=== PATIENT | female | born 1940 | race Caucasian/White ===

== ENCOUNTER → 2017-04-13 | Outpatient (CLI) | payer OTHER ==
[~2017-04-13] MED LIST: ASCO10004 PO; ATEN25TA PO; BEVA25VI INJ; CALCIUM PO; CAPE500T24 PO; MULT-516 PO; OMNIPAQUE 350 MG/ML, 100ML BOTTLE ONE; PRED-402 PO; VITAMIN B12 PO; VITAMIN D3 PO; VITAMIN K2 PO; Vitamin B PO
== END | disposition home or self-care (01) ==
LOC: CFH 10:01 → MERGE 10:01
PROVIDERS: ATTEND Radiology Radiation Oncology
DX: C18.9 Malignant neoplasm of colon, unspecified (principal); C78.01 Secondary malignant neoplasm of right lung; M48.56XA Collapsed vertebra, not elsewhere classified, lumbar region, initial encounter for fracture; M47.895 Other spondylosis, thoracolumbar region; M16.0 Bilateral primary osteoarthritis of hip; M43.16 Spondylolisthesis, lumbar region; N95.9 Unspecified menopausal and perimenopausal disorder; I10 Essential (primary) hypertension
CPT/HCPCS: 71260; 74177; Q9967

== ENCOUNTER 2017-05-09 06:04 | Day surgery (SDC) | payer OTHER ==
[~2017-05-09] VITALS: Ht 170.2 cm; Wt 57.4 kg
[~2017-05-09 06:04] MED LIST changes: +IBUP-1484 PO; -OMNIPAQUE 350 MG/ML, 100ML BOTTLE ONE
[2017-05-09] MEDS ORDERED: LACTATED RINGERS 1,000 ML IV SCH (06:41)
[2017-05-09] MEDS ORDERED: FENTANYL PF 250 MCG/5ML ONE (07:04)
[2017-05-09] MEDS ORDERED: HEPARIN 5,000 UNITS/ML, 1ML ONE (07:04)
[2017-05-09] MEDS ORDERED: MIDAZOLAM 1 MG/ML, 2ML ONE (07:04)
[2017-05-09] MEDS ORDERED: BUPIVACAINE/PF 0.5% ONE (07:04)
[2017-05-09] MEDS ORDERED: CEFAZOLIN 1,000 MG ONE (07:05)
[2017-05-09] MEDS ORDERED: DEXAMETHASONE 4 MG/ML, 1ML ONE (07:05)
[2017-05-09] MEDS ORDERED: EPINEPHRINE 1 MG/ML, 1ML ONE (07:05)
[2017-05-09] MEDS ORDERED: HEPARIN 1,000 UNITS/ML, 10ML ONE (07:05)
[2017-05-09] MEDS ORDERED: PROPOFOL 10 MG/ML, 20ML ONE ×2 (07:05→08:25)
[2017-05-09] MEDS ORDERED: SUCCINYLCHOLINE 20 MG/ML, 10ML ONE (07:05)
[2017-05-09] MEDS ORDERED: ONDANSETRON 2MG/ML, 2ML ONE (07:05)
[2017-05-09] MEDS ORDERED: SODIUM CHLORIDE 0.9% 100 ML ONE (07:08)
[2017-05-09] MEDS ORDERED: BUPIVACAINE/PF 0.5% INFIL ONE (07:59)
[2017-05-09] MEDS ORDERED: HEPARIN 1,000 UNITS/ML, 10ML IV ONE (08:00)
[2017-05-09] MEDS ORDERED: EPINEPHRINE 1 MG/ML, 1ML INFIL ONE (08:00)
[2017-05-09] MEDS ORDERED: HEPARIN 5,000 UNITS/ML, 1ML SQ ONE (08:18)
[2017-05-09] MEDS ORDERED: ACETAMINOPHEN 325 MG TABLET PO PRN (08:30)
[2017-05-09] MEDS ORDERED: ONDANSETRON 2MG/ML, 2ML IVPush PRN (08:30)
[2017-05-09] MEDS ORDERED: HYDROmorphone 1 MG/ML, 1ML IV PRN (08:30)
[2017-05-09] MEDS ORDERED: MIDAZOLAM 1 MG/ML, 2ML IV PRN (08:30)
[2017-05-09] MEDS ORDERED: ALBUTEROL/IPRATROPIUM 2.5MG/0.5MG, 3 ML NPPB PRN (08:30)
[2017-05-09] MEDS ORDERED: FENTANYL PF 100 MCG/2ML ONE ×2 (08:56→09:24)
[2017-05-09] MEDS ORDERED: OXYcodone 5 MG/5 ML ORAL.SOL UDC ONE (08:56)
[2017-05-09] MEDS ORDERED: ACETAMINOPHEN 325 MG TABLET ONE (08:56)
[2017-05-09] MEDS: OXYcodone 5 MG/5 ML ORAL.SOL UDC PO PRN ×2 (09:03→09:21)
[2017-05-09] MEDS: FENTANYL PF 100 MCG/2ML IV PRN ×4 (09:04→09:49)
== END 2017-05-09 14:45 ==
LOC: OUT 06:04
PROVIDERS: ATTEND Surgery
DX: Z45.2 Encounter for adjustment and management of vascular access device (principal); C19 Malignant neoplasm of rectosigmoid junction; Z98.890 Other specified postprocedural states; Z87.39 Personal history of other diseases of the musculoskeletal system and connective tissue; I10 Essential (primary) hypertension; Z85.118 Personal history of other malignant neoplasm of bronchus and lung
CPT/HCPCS: 36561; 71010; 77001; C1788; J0171; J0330; J0690; J1100; J1644; J2250; J2405; J2704; J3010; J3490; J7120

== ENCOUNTER → 2017-08-25 | Outpatient (CLI) | payer OTHER ==
[~2017-08-25] MED LIST changes: +OMNIPAQUE 350 MG/ML, 75ML BOTTLE ONE
== END | disposition home or self-care (01) ==
LOC: CFH 09:46
PROVIDERS: ATTEND Specialist
DX: C20 Malignant neoplasm of rectum (principal); C78.00 Secondary malignant neoplasm of unspecified lung; Z98.890 Other specified postprocedural states; J43.9 Emphysema, unspecified
CPT/HCPCS: 71260; Q9967

== ENCOUNTER → 2017-12-12 | Outpatient (CLI) | payer OTHER ==
[~2017-12-12] MED LIST changes: -OMNIPAQUE 350 MG/ML, 75ML BOTTLE ONE
[2017-12-12 14:02] LABS: CREATININE 0.58 mg/dL (0.55-1.02)
== END | disposition home or self-care (01) ==
LOC: RAD 13:14
PROVIDERS: ATTEND Specialist
DX: C20 Malignant neoplasm of rectum (principal); R91.8 Other nonspecific abnormal finding of lung field
CPT/HCPCS: 36415; 71260; 74177; 82565

== ENCOUNTER → 2017-12-22 | Outpatient (CLI) | payer OTHER | END | disposition home or self-care (01) | LOC: CVU 08:50 | PROVIDERS: ATTEND Internal Medicine Cardiovascular Disease | DX: I27.20 Pulmonary hypertension, unspecified (principal); I07.1 Rheumatic tricuspid insufficiency; C18.9 Malignant neoplasm of colon, unspecified; Z87.891 Personal history of nicotine dependence | CPT/HCPCS: 0399T; 93306 ==